=== PATIENT | male | born 1960 | race Caucasian/White ===

== ENCOUNTER 2025-03-11 07:35 | Outpatient (CLI) | payer OTHER, SELFPAY ==
--- NOTE | ~2025-03-11 | MR_ITS ---
MRI of the right knee Clinical history: Pain Technique: Coronal proton density and proton density-weighted images, sagittal proton-density and T2 fat-sat images, and axial proton-density fat-saturated images were acquired. Findings: There is complete tear of the ACL. Posterior cruciate ligament is intact. Medial collateral ligament is intact. Lateral collateral ligament complex is intact. Popliteus tendon is intact. There is diffuse complex tearing involving essentially the entire lateral meniscus. There is complex tearing of the posterior horn and body of medial meniscus which are markedly diminutive. There is minimal chondromalacia patella. There is patchy moderate chondromalacia the medial femoral c ondyle. There is mild chondromalacia of the lateral femoral condyle. Mild tricompartmental osteophyte s are present. Extensor mechanism is intact. There is small joint effusion. No Pemberton's cyst. Impression: Diffuse complex tearing involving the entirety of the lateral meniscus. Markedly diminutive posterior horn and body of medial meniscus is compatible with complex tearing of these portions. Complete ACL tear, likely chronic. Correlate clinically Degenerative change of the knee, as above. Reviewed, dictated and finalized at [facility]. Impression: Diffuse complex tearing involving the entirety of the lateral meniscus. Markedly diminutive posterior horn and body of medial meniscus is compatible wi th complex tearing of these portions. Complete ACL tear, likely chronic. Correlate clinically Degenerative change of the knee, as above.
== END 2025-03-11 07:36 | disposition home or self-care (01) ==
LOC: MICIMG 07:39
PROVIDERS: PCP Physician Assistant Medical; Visit Provider Orthopaedic Surgery
DX: S83.271A Complex tear of lateral meniscus, current injury, right knee, initial encounter (principal); S83.511A Sprain of anterior cruciate ligament of right knee, initial encounter; S83.231A Complex tear of medial meniscus, current injury, right knee, initial encounter; X58.XXXA Exposure to other specified factors, initial encounter; M17.11 Unilateral primary osteoarthritis, right knee
CPT/HCPCS: 73721